=== PATIENT | male | born 1970 | race Caucasian/White ===

== ENCOUNTER 2022-04-13 17:47 | Emergency (ER) | payer OTHER ==
[~2022-04-13] VITALS: Ht 172.7 cm; Wt 81.7 kg
== END 2022-04-13 18:38 | disposition home or self-care (01) ==
LOC: ER 17:47
DX: Z02.89 Encounter for other administrative examinations (principal); F10.129 Alcohol abuse with intoxication, unspecified
CPT/HCPCS: 99282

== ENCOUNTER 2022-05-17 18:36 | Emergency (ER) | payer OTHER ==
[~2022-05-17] VITALS: Ht 172.7 cm; Wt 79.4 kg
[~2022-05-17 18:36] MED LIST: CHLO25 PO; FAMO20 PO; ONDA4ODT MM
[2022-05-17] MEDS ORDERED: BUPROPION XL150 M1 PO (18:54)
[2022-05-17] MEDS ORDERED: NEURONTIN400 M9 PO (18:54)
[2022-05-17] MEDS ORDERED: [UNRECOGNIZED DRUG - CODE] PO (18:54)
[2022-05-17] MEDS ORDERED: BUSPIRONE HCL10 M6 PO (18:54)
== END 2022-05-17 19:00 | disposition home or self-care (01) ==
LOC: ER 18:36
DX: Z02.89 Encounter for other administrative examinations (principal); F10.129 Alcohol abuse with intoxication, unspecified; Z79.899 Other long term (current) drug therapy
CPT/HCPCS: 99282

== ENCOUNTER 2022-05-25 11:31 | Emergency (ER) | payer OTHER ==
[~2022-05-25] VITALS: Ht 170.2 cm; Wt 81.7 kg
[~2022-05-25 11:31] MED LIST changes: +BUPROPION XL150 M1 PO; +Buspirone HCl15 MG PO; +NEURONTIN400 M9 PO; +[UNRECOGNIZED DRUG - CODE] PO
[2022-05-25] MEDS ORDERED: Buspirone HCl15 MG PO (12:21)
[2022-05-25] MEDS ORDERED: QUET200 PO (12:21)
[2022-05-25] MEDS ORDERED: GABA300 PO (12:21)
[2022-05-25] MEDS ORDERED: Budeprion Xl300 MG PO (12:21)
[2022-06-04] MEDS ORDERED: Vitamin B-12100 MCG PO (21:40)
[2022-06-04] MEDS ORDERED: OMEP20ER PO (21:41)
[2022-06-04] MEDS ORDERED: Naltrexone HCl50 MG PO (21:42)
== END 2022-05-25 12:32 | disposition home or self-care (01) ==
LOC: ER 11:31
DX: Z76.0 Encounter for issue of repeat prescription (principal); Z79.899 Other long term (current) drug therapy
CPT/HCPCS: 99281

== ENCOUNTER 2022-05-29 08:33 | Emergency (ER) | payer OTHER ==
[~2022-05-29] VITALS: Ht 170.2 cm; Wt 86.2 kg
[~2022-05-29 08:33] MED LIST changes: +Budeprion Xl300 MG PO; +GABA300 PO; +QUET200 PO
[2022-05-29] MEDS ORDERED: QUET200 PO (08:52)
[2022-05-29] MEDS ORDERED: Neurontin 300300 MG PO (08:52)
[2022-05-29] MEDS ORDERED: Buspirone HCl15 MG PO (08:52)
[2022-05-29] MEDS ORDERED: BUPR150ER PO (08:52)
[2022-06-04] MEDS ORDERED: Vitamin B-12100 MCG PO (21:40)
[2022-06-04] MEDS ORDERED: OMEP20ER PO (21:41)
[2022-06-04] MEDS ORDERED: Naltrexone HCl50 MG PO (21:42)
== END 2022-05-29 08:58 | disposition home or self-care (01) ==
LOC: ER 08:33
DX: Z76.0 Encounter for issue of repeat prescription (principal); Z79.899 Other long term (current) drug therapy
CPT/HCPCS: 99281

== ENCOUNTER 2023-09-04 08:38 | Emergency (ER) | payer OTHER ==
[~2023-09-04] VITALS: Ht 170.2 cm; Wt 95.2 kg
[~2023-09-04 08:38] MED LIST changes: +BUPR150ER PO; +Naltrexone HCl50 MG PO; +Neurontin 300300 MG PO; +OMEP20ER PO; +Vitamin B-12100 MCG PO
[2023-09-04 08:50] VITALS: BP 137/99
[2023-09-04] MEDS ORDERED: BRINTELLIX10 MG PO ×2 (09:00→09:38)
[2023-09-04] MEDS ORDERED: Seroquel Xr300 MG PO (09:00)
[2023-09-04] MEDS ORDERED: Neurontin 300300 MG PO ×4 (09:00→09:20)
[2023-09-04] MEDS ORDERED: BUSPIRONE HCL30 M1 PO ×2 (09:00→09:38)
[2023-09-04] MEDS ORDERED: QUET200 PO (09:38)
== END 2023-09-04 09:42 | disposition home or self-care (01) ==
LOC: ER 08:38
DX: Z76.0 Encounter for issue of repeat prescription (principal); Z79.899 Other long term (current) drug therapy
CPT/HCPCS: 99281

== ENCOUNTER 2023-09-09 08:22 | Observation (INO) | payer OTHER ==
[~2023-09-09] VITALS: Ht 170.2 cm; Wt 95.2 kg
[~2023-09-09 08:22] MED LIST changes: +BRINTELLIX10 MG PO; +BUSPIRONE HCL30 M1 PO; +Seroquel Xr300 MG PO
[2023-09-09 10:05] LABS: BASOPHILS ABSOLUTE AUTO 0.05 K/mm3 (0.00-0.23); BASOPHILS PERCENT AUTO 1 % (0-2); EOSINOPHILS ABSOLUTE AUTO 0.27 K/mm3 (0.00-0.68); EOSINOPHILS PERCENT AUTO 3 % (0-6); Hematocrit 44.1 % (37.0-53.0); Hemoglobin 14.4 g/dL (13.5-17.5); IMMATURE GRAN ABSOLUTE AUTO 0.04 K/mm3 (0.00-0.10); IMMATURE GRAN PERCENT AUTO 0 % (0-1); LYMPHOCYTES ABSOLUTE AUTO 1.45 K/mm3 (0.84-5.20); LYMPHOCYTES PERCENT AUTO 16 % (21-46); MONOCYTES ABSOLUTE AUTO 0.47 K/mm3 (0.16-1.47); MONOCYTES PERCENT AUTO 5 % (4-13); Mean Corpuscular HGB 30.4 pg (26.0-34.0); Mean Corpuscular HGB Conc 32.7 g/dL (31.5-36.5); Mean Corpuscular Volume 93 fL (80-100); Mean Platelet Volume 9.9 fL (9.1-12.4); NEUTROPHILS PERCENT AUTO 76 % (41-73); Platelet Count 251 K/mm3 (150-400); RDW Coefficient Variation 15.8 % (11.7-14.2); RDW Standard Deviation 54.2 fL (35.1-46.3); Red Blood Cell Count 4.74 M/mm3 (4.30-5.90); White Blood Cell Count 9.38 K/mm3 (4.00-11.30)
[2023-09-09 10:44] LABS: Alanine Aminotransfer (ALT/SGP 28 U/L (12-78); Albumin, Blood 3.6 g/dL (3.4-5.0); Albumin/Globulin Ratio 1.1 (0.8-1.8); Alk Phos 106 U/L (50-136); Anion Gap 9 mmol/L (6-16); Aspartate Aminotrans (AST/SGOT 29 U/L (12-37); Bilirubin, Total 0.5 mg/dL (0.1-1.0); Blood Urea Nitrogen 18 mg/dL (8-24); Bun/Creatinine Ratio 16.8 (12.0-20.0); CO2, Blood 21 mmol/L (21-32); Calcium, Blood 8.7 mg/dL (8.5-10.1); Chloride, Blood 111 mmol/L (98-108); Creatinine, Blood 1.07 mg/dL (0.60-1.20); Ethanol (Alcohol), Blood, Med <3 mg/dL; Globulin, Blood 3.4 g/dL (2.2-4.0); Glomerular Filtration Rate 84 (60-); Glucose, Blood 123 mg/dL (70-99); Potassium, Blood 3.7 mmol/L (3.5-5.5); Sodium, Blood 141 mmol/L (136-145)
[2023-09-09 11:21] LABS: U Amphetamine Screen Not Detected; U Barbituate Screen Not Detected; U Benzodiazapine Screen Not Detected; U Buprenorphine Screen Not Detected; U Cannabinoids Screen Not Detected; U Cocaine Screen Not Detected; U Methadone Screen Not Detected; U Methamphetamine Screen Not Detected; U Opiates Screen Not Detected; U Oxycodone Screen Not Detected; U Phencyclidine Screen Not Detected; U Propoxyphene Screen Not Detected
[2023-09-09 12:19] LABS: Salicylate <1.7 mg/dL (2.8-20.0)
[2023-09-09 12:20] LABS: Acetaminophen, Random <2.0 ug/mL (10.0-30.0)
[2023-09-09 14:12] LABS: Source, Urine Clean Catch
[2023-09-09 14:15] LABS: Appearance, Urine Clear (Clear); Bilirubin, Urine Neg (Neg); Blood, Urine Neg (Neg); Color, Urine Yellow (P-Yellow); Glucose Qualitative, Urine Neg (Neg); Ketones, Urine Neg (Neg); Leukocyte Esterase, Urine Neg (Neg); Nitrite, Urine Neg (Neg); Protein, Urine 1+ (Neg); Urobilinogen, Urine NORM (Normal); pH, Urine 6.5 (5.0-8.0)
[2023-09-09] MEDS ORDERED: NEURONTIN300 MG PO (15:26)
[2023-09-09 21:58] VITALS: BP 140/97
== END 2023-09-10 22:40 | disposition home or self-care (01) ==
LOC: ER 08:22 → EOR 08:23
PROVIDERS: ADMIT Emergency Medicine
DX: F32.A Depression, unspecified (principal); F43.25 Adjustment disorder with mixed disturbance of emotions and conduct; F10.20 Alcohol dependence, uncomplicated
CPT/HCPCS: 80053; 85025; 93005; 93010; 99285-25; G0378; G0480

== ENCOUNTER 2023-09-20 12:59 | Emergency (ER) | payer OTHER ==
[~2023-09-20] VITALS: Ht 170.2 cm; Wt 95.2 kg
[~2023-09-20 12:59] MED LIST changes: +NEURONTIN300 MG PO
[2023-09-20 13:27] VITALS: BP 148/99
[2023-09-20] MEDS ORDERED: Neurontin 300300 MG PO ×3 (13:39→15:02)
[2023-09-20] MEDS ORDERED: BRINTELLIX10 MG PO (13:39)
[2023-09-21] MEDS ORDERED: NYSTOP15 GM TOP (17:05)
== END 2023-09-20 13:39 | disposition home or self-care (01) ==
LOC: ER 12:59
DX: Z76.0 Encounter for issue of repeat prescription (principal); Z79.899 Other long term (current) drug therapy
CPT/HCPCS: 99281

== ENCOUNTER 2023-09-21 14:43 | Emergency (ER) | payer OTHER ==
[~2023-09-21] VITALS: Ht 170.2 cm; Wt 90.7 kg
[2023-09-21 15:18] VITALS: BP 151/99
[2023-09-21 16:09] LABS: Source, Urine Clean Catch
[2023-09-21 16:13] LABS: Appearance, Urine Clear (Clear); Bilirubin, Urine Neg (Neg); Blood, Urine Neg (Neg); Color, Urine Yellow (P-Yellow); Glucose Qualitative, Urine Neg (Neg); Ketones, Urine Neg (Neg); Leukocyte Esterase, Urine Neg (Neg); Nitrite, Urine Neg (Neg); Protein, Urine Neg (Neg); Urobilinogen, Urine NORM (Normal)
[2023-09-21 16:19] LABS: BASOPHILS ABSOLUTE AUTO 0.09 K/mm3 (0.00-0.23); BASOPHILS PERCENT AUTO 1 % (0-2); EOSINOPHILS ABSOLUTE AUTO 0.38 K/mm3 (0.00-0.68); EOSINOPHILS PERCENT AUTO 4 % (0-6); Hematocrit 43.3 % (37.0-53.0); Hemoglobin 14.2 g/dL (13.5-17.5); IMMATURE GRAN ABSOLUTE AUTO 0.11 K/mm3 (0.00-0.10); IMMATURE GRAN PERCENT AUTO 1 % (0-1); LYMPHOCYTES ABSOLUTE AUTO 2.92 K/mm3 (0.84-5.20); LYMPHOCYTES PERCENT AUTO 30 % (21-46); MONOCYTES ABSOLUTE AUTO 0.67 K/mm3 (0.16-1.47); MONOCYTES PERCENT AUTO 7 % (4-13); Mean Corpuscular HGB 30.2 pg (26.0-34.0); Mean Corpuscular HGB Conc 32.8 g/dL (31.5-36.5); Mean Corpuscular Volume 92 fL (80-100); Mean Platelet Volume 9.7 fL (9.1-12.4); NEUTROPHILS ABSOLUTE AUTO 5.68 K/mm3 (1.96-9.15); NEUTROPHILS PERCENT AUTO 58 % (41-73); Platelet Count 309 K/mm3 (150-400); RDW Coefficient Variation 14.8 % (11.7-14.2); RDW Standard Deviation 50.4 fL (35.1-46.3); White Blood Cell Count 9.85 K/mm3 (4.00-11.30)
[2023-09-21 16:51] LABS: Bun/Creatinine Ratio 17.1 (12.0-20.0); C-REACTIVE PROTEIN, EXT RANGE 1.8 mg/dL (0.000-0.300); Calcium, Blood 8.7 mg/dL (8.5-10.1); Creatinine, Blood 1.11 mg/dL (0.60-1.20); Potassium, Blood 3.5 mmol/L (3.5-5.5)
[2023-09-21] MEDS ORDERED: NYSTOP15 GM TOP (17:05)
[2023-09-23] MEDS ORDERED: BUSPIRONE HCL30 M1 PO (15:04)
== END 2023-09-22 14:42 | disposition home or self-care (01) ==
LOC: ER 14:43
PROVIDERS: Emergency Medicine
DX: B35.6 Tinea cruris (principal); B37.2 Candidiasis of skin and nail; L03.115 Cellulitis of right lower limb; Z79.899 Other long term (current) drug therapy
CPT/HCPCS: 80048; 81003; 85025; 86140; 99282; A9270

== ENCOUNTER 2023-09-23 14:43 | Emergency (ER) | payer OTHER ==
[~2023-09-23] VITALS: Ht 172.7 cm; Wt 90.7 kg
[~2023-09-23 14:43] MED LIST changes: +NYSTOP15 GM TOP
[2023-09-23 15:02] VITALS: BP 160/105
[2023-09-23] MEDS ORDERED: BUSPIRONE HCL30 M1 PO (15:04)
[2023-09-24] MEDS ORDERED: MUPIROCIN1 GM TOP (11:47)
[2023-09-24] MEDS ORDERED: ALEVAZOL56.7 G1 TOP (11:47)
== END 2023-09-23 15:05 | disposition home or self-care (01) ==
LOC: ER 14:43
DX: Z76.0 Encounter for issue of repeat prescription (principal); Z79.899 Other long term (current) drug therapy
CPT/HCPCS: 99281

== ENCOUNTER 2023-09-24 09:36 | Emergency (ER) | payer OTHER ==
[~2023-09-24] VITALS: Ht 170.2 cm; Wt 90.7 kg
[2023-09-24 10:38] VITALS: BP 129/86
[2023-09-24] MEDS ORDERED: ALEVAZOL56.7 G1 TOP (11:47)
[2023-09-24] MEDS ORDERED: MUPIROCIN1 GM TOP (11:47)
== END 2023-09-24 12:05 | disposition home or self-care (01) ==
LOC: ER 09:36
DX: N48.29 Other inflammatory disorders of penis (principal); B37.49 Other urogenital candidiasis; B96.89 Other specified bacterial agents as the cause of diseases classified elsewhere; Z79.899 Other long term (current) drug therapy
CPT/HCPCS: 99283